=== PATIENT | male | born 1985 | race African-American/Black ===

== ENCOUNTER 2018-10-02 11:47 | Emergency (ER) | payer SELFPAY ==
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
== END 2018-10-02 14:00 | disposition home or self-care (01) ==
LOC: ER 11:47
DX: S80.01XA Contusion of right knee, initial encounter (principal); V43.52XA Car driver injured in collision with other type car in traffic accident, initial encounter; F17.210 Nicotine dependence, cigarettes, uncomplicated
CPT/HCPCS: 99283